=== PATIENT | female | born 1965 | race African-American/Black ===

== ENCOUNTER 2018-09-25 11:57 | Inpatient (IN) | payer OTHER ==
--- NOTE | 2018-09-25 15:02 | PDOC ---
History of Present Illness - General Chief Complaint: Psychiatric Stated Complaint: HIGH BLOOD SUGAR Time Seen by Provider: 09/25/18 14:52 History Source: Patient Exam Limitations: Other (poor historian) Past History - Travel Traveled outside of the country in the last 30 days: No Close contact w/someone who was outside of country & ill: No - Past Medical History Allergies/Adverse Reactions: Allergies Allergy/AdvReac Type Severity Reaction Status Date / Time No Known Drug Allergies Allergy Verified 09/25/18 12:01 Home Medications: Ambulatory Orders Atorvastatin Ca [Lipitor] 10 mg PO HS 09/25/18 Cetirizine HCl 10 mg PO DAILY 09/25/18 Divalproex *ER* [Depakote *ER* -] 500 mg PO DAILY 09/25/18 Glipizide 5 mg PO DAILY 09/25/18 Haloperidol 20 mg PO DAILY 09/25/18 Insulin Glargine,Hum.rec.anlog [Basaglar Kwikpen U-100] 22 unit SQ HS 09/25/18 Metformin HCl [Glucophage] 500 mg PO BID 09/25/18 - Suicide/Smoking/Psychosocial Hx Smoking History: Current every day smoker Information on smoking cessation initiated: No Review of Systems - Review of Systems Able to Perform ROS?: Yes (limited, poor historian) *Physical Exam - Vital Signs Last Vital Signs Temp Pulse Resp BP Pulse Ox 98.8 F 121 H 18 121/66 97 09/25/18 12:02 09/25/18 12:02 09/25/18 12:02 09/25/18 12:02 09/25/18 12:02 ED Treatment Course - LABORATORY CBC & Chemistry Diagram: 09/25/18 17:30 09/25/18 17:30 Medical Decision Making - Medical Decision Making Pt was seen at bedside, also will be seen by attending Dr. Barrios. Pt presenting from PCP office (Dr. Clay) for BGM of 535. Pt states she has not taken for metformin or other insulin for over 2 weeks due to "personal matters in court". The pt states she had 1 episode of NBNB vomiting yesterday, but denies any complaints today. Pt is very tangential in her speech, has been attempting to leave the ED to smoke cigarettes, but has very poor insight into her condition. Will provide IM haldol for agitation. Considering [vs vs] Ordered work-up including CBC, CMP, acetone, chest x-ray, UA. Provided 1 L IV NS and 2.5 IM haldol for improvement of agitation and dehydration. Will continue to reassess pt and monitor for symptomatic improvement. 09/25/18 15:16 Placed IV line for medication, unable to obtain bloodwork due to dehydration. Will give IVF and attempt bloodwork again. 09/25/18 16:15 UA showed 3+ glucose, no ketones BGM 311 after IVF Will provide additional IL IV NS Pt received 2L IV NS CBC WNL CMP: BUN/Cr WNL, glucose 297 Acetone negative Paging hospitalist team for admission. 09/25/18 18:35 Pt admitted to hospitalist team (Dr. Garcia). 09/25/18 19:13
[2018-09-25] MEDS ORDERED: SODIUM CHLORIDE 1,000 ML IV STA ×3 (15:41→19:21)
[2018-09-25] MEDS ORDERED: HALOPERIDOL LACTATE 5 MG/ML IM ONE ×2 (15:44→16:08)
--- NOTE | 2018-09-25 16:31 | PDOC ---
Documentation entered by Sy Hernandez SCRIBE, acting as scribe for Nik Barrios MD. Nik Barrios MD: This documentation has been prepared by the Mary araiza Xhesika, SCRIBE, under my direction and personally reviewed by me in its entirety. I confirm that the documentation accurately reflects all work, treatment, procedures, and medical decision making performed by me. Attending Attestation - Resident Resident Name: TianClara - ED Attending Attestation I have performed the following: I have examined & evaluated the patient, The case was reviewed & discussed with the resident, I agree w/resident's findings & plan, Exceptions are as noted - HPI HPI: 09/25/18 16:15 53 F with h/o DM, schizophrenia presenting to ED for elevated sugars. Pt does not check her fingerstick daily. Pt states she is supposed to be taking metformin, but she admits to non-compliance with all her meds for several weeks , including her haldol. Pt endorses an episode of nausea and vomiting yesterday but states that she feels at her baseline today. Pt went to her PMD today, where she was found to have a fingerstick >500. Pt was subsequently sent to the ED. Pt denies recent illness, no F/C. Pt denies SI/HI/AVH. - Physicial Exam PE: 09/25/18 16:17 "GENERAL: Awake, alert, and fully oriented, in no acute distress. HEAD: No signs of trauma EYES: PERRLA, EOMI, sclera anicteric, conjunctiva clear ENT: Auricles normal inspection, hearing grossly normal, nares patent, oropharynx clear without exudates. Moist mucosa NECK: Nontender, no stepoffs, Normal ROM, supple, no lymphadenopathy, JVD, or masses LUNGS: Breath sounds equal, clear to auscultation bilaterally. No wheezes, and no crackles HEART: Regular rate and rhythm, normal S1 and S2, no murmurs, rubs or gallops ABDOMEN: Soft, nontender, normoactive bowel sounds. No guarding, no rebound. No masses EXTREMITIES: Normal range of motion, no edema. No clubbing or cyanosis. No cords, erythema, or tenderness NEUROLOGICAL: Cranial nerves II through XII intact. 5/5 strength and sensation in all extremities, Normal speech, normal gait, normal cerebellar function SKIN: Warm, Dry, normal turgor, no rashes or lesions noted. - Medical Decision Making 09/25/18 16:18 53 F with elevated fingerstick, likely 2/2 med noncompliance. Will r/o DKA. Pt also noncompliant with her haldol. In ED, she is very tangential and displaying flight of ideas but is redirectable, not overtly psychotic. Denying SI/HI/AVH. Will give 1 dose haldol IM. - Labs, acetone - IVF 09/25/18 16:43 Upon further questioning, pt now stating that she is on insulin but is unable to give reliable history of how much she takes and when. Labs unremarkable other than hyperglycemia Given pt's h/o poor compliance and follow up, will admit for titration of medications
[2018-09-25 17:15] LABS: URINE APPEARANCE CLEAR; URINE BILIRUBIN NEGATIVE (NEGATIVE); URINE COLOR YELLOW; URINE GLUCOSE (UA) 3+ (NEGATIVE); URINE KETONE NEGATIVE (NEGATIVE); URINE LEUK ESTERASE NEGATIVE (NEGATIVE); URINE NITRITE NEGATIVE (NEGATIVE); URINE PROTEIN NEGATIVE (NEGATIVE); URINE UROBILINOGEN 0.2 mg/dL (0.2-1.0)
[2018-09-25 17:42] LABS: BASO % 1.4 % (0-2.0); EOS % 0.4 % (0-4.5); HEMATOCRIT 39.8 % (32.4-45.2); HEMOGLOBIN 13.6 GM/dL (10.7-15.3); MCH 30.8 pg (25.7-33.7); MCHC 34.2 g/dl (32.0-36.0); MEAN PLT VOLUME 8.7 fl (7.5-11.1); MONO % 6.9 % (3.8-10.2); NEUT % 49.3 % (42.8-82.8); PLATELET COUNT 217 K/MM3 (134-434); RBC 4.42 M/mm3 (3.60-5.2); RDW 12.7 % (11.6-15.6)
[2018-09-25 18:10] LABS: ACETONE SERUM NEGATIVE (NEGATIVE); ALK PHOS 132 U/L (45-117); ANION GAP 6 MMOL/L (8-16); BILIRUBIN,TOTAL 0.4 mg/dL (0.2-1); BLOOD UREA NITROGEN 11 mg/dL (7-18); CALCIUM 8.2 mg/dL (8.5-10.1); CHLORIDE 107 mmol/L (98-107); CO2 24 mmol/L (21-32); CREATININE 0.8 mg/dL (0.55-1.3); GLUCOSE,RANDOM 297 mg/dL (74-106); POTASSIUM 4.2 mmol/L (3.5-5.1); SGOT/AST 10 U/L (15-37); SGPT/ALT 18 U/L (13-61); SODIUM 137 mmol/L (136-145); TOT PROT 5.9 g/dl (6.4-8.2)
[2018-09-25] MEDS ORDERED: INSULIN REGULAR HUMAN 100 UNITS/ML *VIAL SQ ONE (18:32)
--- NOTE | 2018-09-25 18:48 | HP ---
CHIEF COMPLAINT: elevated sugar /schizophrenia PCP:Dr Clay HISTORY OF PRESENT ILLNESS:pt refuse to provide history , information was taking from medical records and ED note 53 F with h/o DM, schizophrenia presenting to ED for elevated sugars. Pt does not check her fingerstick daily. Pt states she is supposed to be taking metformin, but she admits to non-compliance with all her meds for several weeks , including her haldol. Pt endorses an episode of nausea and vomiting yesterday but states that she feels at her baseline today. Pt went to her PMD today, where she was found to have a fingerstick >500. Pt was subsequently sent to the ED. Pt denies recent illness, no F/C. Pt denies SI/HI/AVH. denies hearing voices , homicidal or suicidal ideation ER course was notable for: (1)cbc, cmp (2)IV fluids (3)Haldol 2.5 IM once Recent Travel: denies AST MEDICAL HISTORY: IDDM , Schizophrenia , seasonal allergies , chronic vaginitis , nuclear age related cataract PAST SURGICAL HISTORY: un known Social History: Smokin/2 PPD since age of 16 Alcohol:denies Drugs: denies Family History:un known Allergies No Known Drug Allergies Allergy (Verified 09/25/18 12:01) HOME MEDICATIONS: Home Medications Medication Instructions Recorded Atorvastatin Ca [Lipitor] 10 mg PO HS 09/25/18 Cetirizine HCl 10 mg PO DAILY 09/25/18 Divalproex *ER* [Depakote *ER* -] 500 mg PO DAILY 09/25/18 Glipizide 5 mg PO DAILY 09/25/18 Haloperidol 20 mg PO DAILY 09/25/18 Insulin Glargine,Hum.rec.anlog 22 unit SQ HS 09/25/18 [Basaglar Kwikpen U-100] Metformin HCl [Glucophage] 500 mg PO BID 09/25/18 REVIEW OF SYSTEMS un able to obtain PHYSICAL EXAMINATION Vital Signs - 24 hr 09/25/18 12:02 Temperature 98.8 F Pulse Rate 121 H Respiratory 18 Rate Blood Pressure 121/66 O2 Sat by Pulse 97 Oximetry (%) GENERAL: AAOx3 in NAD , sleeping in bed HEAD: NC/AT EYES: , Conjunctiva clear,red eyes B/L ENT: moist mucous membrane NECK: Supple, no JVD LUNGS: CTA B/L, no crackles no wheezing no accessory muscle use. HEART: RRR, NSR, normal s1, s2, murmur no M/R/G ABDOMEN: Soft, ND, NT, +BS 4 Q, no CVA Tenderness LOWER EXTREMITIES: no edema, +2DP pulse, NEUROLOGICAL: No focal deficit. Normal speech. gait not observed. PSYCHIATRIC:sleeping and no eye contact , refuse to provide history SKIN: Warm, dry, Laboratory Results - last 24 hr 09/25/18 09/25/18 09/25/18 16:48 17:14 17:30 WBC RBC Hgb Hct MCV MCH MCHC RDW Plt Count MPV Absolute Neuts (auto) Neutrophils % Lymphocytes % Monocytes % Eosinophils % Basophils % Nucleated RBC % Sodium 137 Potassium 4.2 Chloride 107 Carbon Dioxide 24 Anion Gap 6 L BUN 11 Creatinine 0.8 Est GFR (CKD-EPI)AfAm 98.24 Est GFR (CKD-EPI)NonAf 84.76 POC Glucometer 311 Random Glucose 297 H Calcium 8.2 L Total Bilirubin 0.4 AST 10 L ALT 18 Alkaline Phosphatase 132 H Total Protein 5.9 L Albumin 3.0 L Urine Color Yellow Urine Appearance Clear Urine pH 5.0 Ur Specific [place] 1.034 Urine Protein Negative Urine Glucose (UA) 3+ H Urine Ketones Negative Urine Blood Negative Urine Nitrite Negative Urine Bilirubin Negative Urine Urobilinogen 0.2 Ur Leukocyte Esterase Negative Acetone, Qual Negative L 09/25/18 17:30 WBC 10.0 RBC 4.42 Hgb 13.6 Hct 39.8 MCV 90.0 MCH 30.8 MCHC 34.2 RDW 12.7 Plt Count 217 MPV 8.7 Absolute Neuts (auto) 4.9 Neutrophils % 49.3 Lymphocytes % 42.0 H Monocytes % 6.9 Eosinophils % 0.4 Basophils % 1.4 Nucleated RBC % 0 Sodium Potassium Chloride Carbon Dioxide Anion Gap BUN Creatinine Est GFR (CKD-EPI)AfAm Est GFR (CKD-EPI)NonAf POC Glucometer Random Glucose Calcium Total Bilirubin AST ALT Alkaline Phosphatase Total Protein Albumin Urine Color Urine Appearance Urine pH Ur Specific [place] Urine Protein Urine Glucose (UA) Urine Ketones Urine Blood Urine Nitrite Urine Bilirubin Urine Urobilinogen Ur Leukocyte Esterase Acetone, Qual CBC, BMP 09/25/18 17:30 09/25/18 17:30 ASSESSMENT/PLAN: 53 year old female with IDDM , Schizophrenia ,seasonal allergies , was send yo ED by her PCP Dr Danna pascual to levated blood sugar 535 was admitted to M/S due to pscychiatrist component . # Hyperglycemia due to non compliance , no DKA component * BGM 535 on admission improved to 300 with IV fluids 2 L NS and 6 units IV regular insulin * hold oral agents Glipizide and Metformin * BGM ACHS * Cont long acting insulin 22 units HS (verified by ed resident from PCP ) * start ISS * Diabetic diet * monitor for hypoglycemia over night as pt might not eat her dinner * CXR no acute pathology , UA +3 glucose and no acetone # psych Schizophrenia/ psychosis * no insight , not complaint with her meds * psych consult Dr Bush * social work consult for [facility] # FEN * NS @ 100 CC/hr ,recieved 2 L Bolus NS in ED * Monitor lytes * Diabetic diet # Proph * DVTS: SCds , lovenox 40 SQ daily # Dispo * inpatient M/S # code status : Full code Visit type - Emergency Visit Emergency Visit: Yes ED Registration Date: 09/25/18 Care time: The patient presented to the Emergency Department on the above date and was hospitalized for further evaluation of their emergent condition. - New Patient This patient is new to me today: Yes Date on this admission: 09/25/18 - Critical Care Critical Care patient: No
[2018-09-25] MEDS ORDERED: INSULIN REGULAR HUMAN 100 UNITS/ML *VIAL ONE (18:49)
--- NOTE | 2018-09-25 19:15 | PN ---
Teaching Attending Note Name of Resident: Bradly Petersen ATTENDING PHYSICIAN STATEMENT I saw and evaluated the patient. I reviewed the resident's note and discussed the case with the resident. I agree with the resident's findings and plan as documented. SUBJECTIVE: Patient is a 53 year old woman with PMH of insulin-treated DM, Tobacco use, Nonadherence and Schizophrenia sent to the ER by her PCP for hyperglycemia. Patient does not check her fingerstick daily. She is supposed to be taking metformin, but she admits to non-compliance with all her medication for several weeks, including her Haldol. She had an episode of nausea and vomiting yesterday but states that she feels at her baseline today. Went to her PCP today , where she was found to have a fingerstick >500. She denies recent illness, fever, chills, headache, abdominal pain, chest pain, diarrhea, suicidal or homicidal ideation. OBJECTIVE: Somnolent and in no mood to talk Vital Signs Period Temp Pulse Resp BP Sys/Allen Pulse Ox Last 24 Hr 98.8 F 121 18 121/66 97 HEENT: No Jaundice, eye redness or discharge, PERRLA, EOMI. Normocephalic, atraumatic. External ears are normal and hearing is grossly intact. No nasal discharge. Neck: Supple, nontender. No palpable adenopathy or thyromegaly. No JVD Chest: Good effort. Clear to auscultation and percussion. Heart: Regular. No S3, rub or murmur Abdomen: Not distended, soft, nontender and no HSM. No rebound or guarding. Normal bowel sounds. Ext: Peripheral pulses intact. No leg edema. Skin: Warm and dry. No petechiae, rash or ecchymosis. Neuro: Alert. Oriented x3. CN 2-12 grossly intact. Sensation grossly intact in all four extremities and DTR are symmetric. Psych: Appropriate mood and affect. Poor insight. Current Medications Generic Name Dose Route Start Last Admin Trade Name Freq PRN Reason Stop Dose Admin Enoxaparin Sodium 40 mg 09/26/18 10:00 Lovenox - SQ DAILY CAESAR Sodium Chloride 1,000 mls @ 1,000 mls/hr 09/25/18 19:21 Normal Saline - IV 09/25/18 20:20 ASDIR STA Sodium Chloride 1,000 mls @ 100 mls/hr 09/25/18 19:30 Normal Saline - IV ASDIR [facility] Insulin Aspart 1 vial 09/25/18 22:00 Novolog Vial Sliding Scale - SQ ACHS [facility] Protocol Insulin Detemir 22 units 09/25/18 22:00 Levemir Vial SQ HS [facility] Home Medications Medication Instructions Recorded Atorvastatin Ca [Lipitor] 10 mg PO HS 09/25/18 Cetirizine HCl 10 mg PO DAILY 09/25/18 Divalproex *ER* [Depakote *ER* -] 500 mg PO DAILY 09/25/18 Glipizide 5 mg PO DAILY 09/25/18 Haloperidol 20 mg PO DAILY 09/25/18 Insulin Glargine,Hum.rec.anlog 22 unit SQ HS 09/25/18 [Basaglar Kwikpen U-100] Metformin HCl [Glucophage] 500 mg PO BID 09/25/18 Abnormal Lab Results 09/25/18 09/25/18 09/25/18 16:48 17:30 17:30 Lymphocytes % 42.0 H Anion Gap 6 L Random Glucose 297 H Calcium 8.2 L AST 10 L Alkaline Phosphatase 132 H Total Protein 5.9 L Albumin 3.0 L Urine Glucose (UA) 3+ H Acetone, Qual Negative L ASSESSMENT AND PLAN: 1. Uncontrolled Diabetes Mellitus - Likely primarily due to nonadherence with her diabetes regimen. EKG shows NSR with no acute ST-T wave changes and there is no abnormality on CXR. Got IV insulin in the ER and blood sugar is improving. Will continue IV NS and monitor BMP. No evidence of DKA. Needs intense patient education, psychiatry consult and referral to [facility] upon discharge. Will hold the home diabetes drugs and implement sliding scale insulin regimen. Provide comprehensive diabetes care with patient teaching and counseling about the importance of adherence to prescribed diabetes regimen, euglycemia, eye care and foot care. 2. Hypoalbuminemia - Possibly due to combined effects of malnutrition and inflammation associated with comorbid chronic conditions. Will ensure adequate dietary protein intake and also consult customer success director. 3. Tobacco Use Counseled on risks associated with tobacco use. We will provide patient all the necessary assistance to facilitate smoking cessation and prescribe Nicotine patch. 4. Overweight Counseled on the risks associated with being overweight. Will provide patient all the necessary assistance, counseling and positive reinforcement to facilitate weight loss. Consult customer success director. 5. DVT prophylaxis - Lovenox 40 mg SQ q 24 hours. 6. Advance directives - Full code
[2018-09-25] MEDS ORDERED: SODIUM CHLORIDE 1,000 ML IV SCH (19:30)
[2018-09-25] MEDS: INSULIN SLIDING SCALE (NOVOLOG) 1 VIAL SQ SCH (21:20)
[2018-09-25] MEDS ORDERED: ATORVASTATIN CA 10 MG TABLET (FP) PO SCH (22:00)
[2018-09-25] MEDS ORDERED: INSULIN (LEVEMIR) 100 UNITS/ML UNITS SQ SCH ×2 (22:00)
[2018-09-25 22:46] VITALS: BMI 32.6
[2018-09-26] MEDS: INSULIN SLIDING SCALE (NOVOLOG) 1 VIAL SQ SCH ×2 (06:00→11:51)
[2018-09-26 07:24] LABS: BASO % 0.9 % (0-2.0); EOS % 0.8 % (0-4.5); HEMATOCRIT 38.7 % (32.4-45.2); HEMOGLOBIN 13.3 GM/dL (10.7-15.3); LYMPH % 36.4 % (8-40); MCH 30.9 pg (25.7-33.7); MCHC 34.4 g/dl (32.0-36.0); MEAN CELL VOLUME 89.8 fl (80-96); MEAN PLT VOLUME 8.6 fl (7.5-11.1); MONO % 7.1 % (3.8-10.2); NEUT % 54.8 % (42.8-82.8); PLATELET COUNT 219 K/MM3 (134-434); RBC 4.31 M/mm3 (3.60-5.2); RDW 12.6 % (11.6-15.6); WHITE BLOOD COUNT 8.4 K/mm3 (4.0-10.0)
[2018-09-26 08:18] LABS: ALBUMIN 2.8 g/dl (3.4-5.0); BILIRUBIN,TOTAL 0.7 mg/dL (0.2-1); CALCIUM 8.1 mg/dL (8.5-10.1); CREATININE 0.8 mg/dL (0.55-1.3); MAGNESIUM 1.9 mg/dL (1.8-2.4); PHOSPHOROUS 3.5 mg/dL (2.5-4.9); POTASSIUM 4.4 mmol/L (3.5-5.1); TOT PROT 5.7 g/dl (6.4-8.2)
[2018-09-26] MEDS ORDERED: PNEUMOC 13-VAL CONJ-DIP CRM/PF 0.5 ML DISP.SYRIN IM ONE (09:00)
[2018-09-26] MEDS ORDERED: ENOXAPARIN NA (PORCINE) 40 MG/0.4 ML DISP.SYRIN SQ SCH (10:00)
[2018-09-26] MEDS ORDERED: DIVALPROEX NA *ER* EXTEND REL 500 MG TABLET.SA (FP) PO SCH (10:00)
[2018-09-26] MEDS ORDERED: HALOPERIDOL 20 MG PO SCH (10:00)
[2018-09-26] MEDS ORDERED: PT OWN MED DRAWER 7, Y5N ONE (11:39)
--- NOTE | 2018-09-26 12:09 | DS ---
Physical Exam: SUBJECTIVE: Patient seen and examined at bedside. No acute events overnight. OBJECTIVE: Vital Signs Period Temp Pulse Resp BP Sys/Allen Pulse Ox Last 24 Hr 98.2 F-98.6 F 77-99 18-18 115-117/62-72 96-96 PHYSICAL EXAM GENERAL: AAOx3 in NAD , sleeping in bed HEAD: NC/AT EYES: , Conjunctiva clear,red eyes B/L ENT: moist mucous membrane NECK: Supple, no JVD LUNGS: CTA B/L, no crackles no wheezing no accessory muscle use. HEART: RRR, NSR, normal s1, s2, murmur no M/R/G ABDOMEN: Soft, ND, NT, +BS 4 Q, no CVA Tenderness LOWER EXTREMITIES: no edema, +2DP pulse, NEUROLOGICAL: No focal deficit. Normal speech. gait not observed. PSYCHIATRIC:sleeping and no eye contact , refuse to provide history LABS Laboratory Results - last 24 hr 09/25/18 09/25/18 09/25/18 16:48 17:14 17:30 WBC RBC Hgb Hct MCV MCH MCHC RDW Plt Count MPV Absolute Neuts (auto) Neutrophils % Lymphocytes % Monocytes % Eosinophils % Basophils % Nucleated RBC % Sodium 137 Potassium 4.2 Chloride 107 Carbon Dioxide 24 Anion Gap 6 L BUN 11 Creatinine 0.8 Est GFR (CKD-EPI)AfAm 98.24 Est GFR (CKD-EPI)NonAf 84.76 POC Glucometer 311 Random Glucose 297 H Hemoglobin A1c % Calcium 8.2 L Phosphorus Magnesium Total Bilirubin 0.4 AST 10 L ALT 18 Alkaline Phosphatase 132 H Total Protein 5.9 L Albumin 3.0 L TSH Urine Color Yellow Urine Appearance Clear Urine pH 5.0 Ur Specific [place] 1.034 Urine Protein Negative Urine Glucose (UA) 3+ H Urine Ketones Negative Urine Blood Negative Urine Nitrite Negative Urine Bilirubin Negative Urine Urobilinogen 0.2 Ur Leukocyte Esterase Negative Acetone, Qual Negative L 09/25/18 09/25/18 09/25/18 17:30 21:00 21:17 WBC 10.0 RBC 4.42 Hgb 13.6 Hct 39.8 MCV 90.0 MCH 30.8 MCHC 34.2 RDW 12.7 Plt Count 217 MPV 8.7 Absolute Neuts (auto) 4.9 Neutrophils % 49.3 Lymphocytes % 42.0 H Monocytes % 6.9 Eosinophils % 0.4 Basophils % 1.4 Nucleated RBC % 0 Sodium Potassium Chloride Carbon Dioxide Anion Gap BUN Creatinine Est GFR (CKD-EPI)AfAm Est GFR (CKD-EPI)NonAf POC Glucometer 304 Random Glucose Hemoglobin A1c % 14.1 H Calcium Phosphorus Magnesium Total Bilirubin AST ALT Alkaline Phosphatase Total Protein Albumin TSH Urine Color Urine Appearance Urine pH Ur Specific [place] Urine Protein Urine Glucose (UA) Urine Ketones Urine Blood Urine Nitrite Urine Bilirubin Urine Urobilinogen Ur Leukocyte Esterase Acetone, Qual 09/26/18 09/26/18 09/26/18 05:53 06:44 06:46 WBC 8.4 RBC 4.31 Hgb 13.3 Hct 38.7 MCV 89.8 MCH 30.9 MCHC 34.4 RDW 12.6 Plt Count 219 MPV 8.6 Absolute Neuts (auto) 4.6 Neutrophils % 54.8 Lymphocytes % 36.4 Monocytes % 7.1 Eosinophils % 0.8 D Basophils % 0.9 Nucleated RBC % 0 Sodium 138 Potassium 4.4 Chloride 109 H Carbon Dioxide 22 Anion Gap 7 L BUN 14 Creatinine 0.8 Est GFR (CKD-EPI)AfAm 98.24 Est GFR (CKD-EPI)NonAf 84.76 POC Glucometer 263 Random Glucose 246 H Hemoglobin A1c % Calcium 8.1 L Phosphorus 3.5 Magnesium 1.9 Total Bilirubin 0.7 AST 16 ALT 17 Alkaline Phosphatase 117 Total Protein 5.7 L Albumin 2.8 L TSH 1.45 Urine Color Urine Appearance Urine pH Ur Specific [place] Urine Protein Urine Glucose (UA) Urine Ketones Urine Blood Urine Nitrite Urine Bilirubin Urine Urobilinogen Ur Leukocyte Esterase Acetone, Qual 09/26/18 11:49 WBC RBC Hgb Hct MCV MCH MCHC RDW Plt Count MPV Absolute Neuts (auto) Neutrophils % Lymphocytes % Monocytes % Eosinophils % Basophils % Nucleated RBC % Sodium Potassium Chloride Carbon Dioxide Anion Gap BUN Creatinine Est GFR (CKD-EPI)AfAm Est GFR (CKD-EPI)NonAf POC Glucometer 276 Random Glucose Hemoglobin A1c % Calcium Phosphorus Magnesium Total Bilirubin AST ALT Alkaline Phosphatase Total Protein Albumin TSH Urine Color Urine Appearance Urine pH Ur Specific [place] Urine Protein Urine Glucose (UA) Urine Ketones Urine Blood Urine Nitrite Urine Bilirubin Urine Urobilinogen Ur Leukocyte Esterase Acetone, Qual HOSPITAL COURSE: Date of Admission:09/25/18 53F with pmhx of IDDM, Schizophrenia, seasonal allergies was sent to the ED by her PCP, Dr. Clay due to elevated blood sugar of 535. Blood work showed Glu 297. She was given 2L NS and IV regular insulin. Additionally, pt was found to be tangential and uncooperative and given Haldol in the ED. She was monitored overnight with no symptomatic complaints. She was discharged home and strongly advised to abide by her medication regimen with recommendation to follow up with her primary care physician. She was also recommended to follow up with the lining strap closer for strict diabetic management as well as her psychiatrist as an outpatient. Date of Discharge: 09/26/18 Minutes to complete discharge: 35 Discharge Summary Reason For Visit: HYPERGLYCEMIA SCHIZOPHRENIA Current Active Problems Insulin dependent diabetes mellitus (Chronic) Condition: Improved - Instructions Diet, Activity, Other Instructions: You were sent to the hospital from your primary care doctor for elevated blood sugar levels. Blood work was done that showed blood sugar of >300. Throughout your hospital stay, you were given insulin to lower your blood sugar levels. You were monitored overnight and your symptoms improved. You are being discharged home. MEDICATIONS Please continue taking your medications as prescribed. It is very important that you take your insulin to avoid extremely high blood sugar levels. FOLLOW UP Please follow up with your primary care physician, Dr. Bar within 1 week. Please also follow up with an lining strap closer/ diabetes doctor, Dr. Quiroga in a week. Your a1c is very high. It is 14.1. This means that you may need more help adjusting your diabetes medications. If you experience persistent headache, abdominal pain, chest pain, shortness of breath or other associated symptoms, please proceed to your nearest emergency room immediately. Referrals: Sariah Polk MD [Staff Physician] - 1 Week Cheyenne Busby MD [Staff Physician] - 1 Week Disposition: HOME - Home Medications Comprehensive Discharge Medication List: Ambulatory Orders Atorvastatin Ca [Lipitor] 10 mg PO HS 09/25/18 Cetirizine HCl 10 mg PO DAILY 09/25/18 Divalproex *ER* [Depakote *ER* -] 500 mg PO DAILY 09/25/18 Glipizide 5 mg PO DAILY 09/25/18 Haloperidol 20 mg PO DAILY 09/25/18 Insulin Glargine,Hum.rec.anlog [Basaglar Kwikpen U-100] 22 unit SQ HS 09/25/18 Metformin HCl [Glucophage] 500 mg PO BID 09/25/18 This patient is new to me today: Yes Date on this admission: 09/27/18 Emergency Visit: Yes ED Registration Date: 09/25/18 Care time: The patient presented to the Emergency Department on the above date and was hospitalized for further evaluation of their emergent condition. Critical Care patient: No - Discharge Referral Referred to [facility] Med P.C.: No
--- NOTE | 2018-09-26 12:26 | EKG ---
Test Reason : Blood Pressure : / mmHG Vent. Rate : 079 BPM Atrial Rate : 079 BPM P-R Int : 140 ms QRS Dur : 070 ms QT Int : 380 ms P-R-T Axes : 064 013 028 degrees QTc Int : 435 ms NORMAL SINUS RHYTHM NORMAL ECG WHEN COMPARED WITH ECG OF 25-SEP-2018 19:36, NO SIGNIFICANT CHANGE WAS FOUND Confirmed by ARACELI BROWN MD ([id number]) on 09/26/2018 12:26:29 PM Referred By: THOMAS LYONS DR Confirmed By:ARACELI BROWN MD
--- NOTE | 2018-09-26 12:34 | EKG ---
Test Reason : Blood Pressure : / mmHG Vent. Rate : 093 BPM Atrial Rate : 093 BPM P-R Int : 150 ms QRS Dur : 068 ms QT Int : 372 ms P-R-T Axes : 069 009 027 degrees QTc Int : 462 ms NORMAL SINUS RHYTHM NORMAL ECG NO PREVIOUS ECGS AVAILABLE Confirmed by ARACELI BROWN MD ([id number]) on 09/26/2018 12:33:54 PM Referred By: Confirmed By:ARACELI BROWN MD
[2018-09-26 12:40] VITALS: BP 137/99; PULSE 86; TEMP 97.7
--- NOTE | 2018-09-26 16:30 | PN ---
Teaching Attending Note Name of Resident: Liz Gonzalez ATTENDING PHYSICIAN STATEMENT I saw and evaluated the patient. I reviewed the resident's note and discussed the case with the resident. I agree with the resident's findings and plan as documented. SUBJECTIVE: Feels well - no complaints. Wants to go home. OBJECTIVE: Afebrile, Hemodynamically Stable Last Vital Signs Temp Pulse Resp BP Pulse Ox 97.7 F 86 18 137/99 96 09/26/18 08:30 09/26/18 08:30 09/26/18 08:30 09/26/18 08:30 09/25/18 21:00 HEENT - Atraumatic, Normocephalic Heart - S1, S2, RRR Lungs - clear to auscultation Abdomen - Soft, non-tender. Bowel Sounds normal. Extremities- no edema, no calf tenderness. Laboratory Results - last 24 hr 09/25/18 09/25/18 09/25/18 16:48 17:14 17:30 WBC RBC Hgb Hct MCV MCH MCHC RDW Plt Count MPV Absolute Neuts (auto) Neutrophils % Lymphocytes % Monocytes % Eosinophils % Basophils % Nucleated RBC % Sodium 137 Potassium 4.2 Chloride 107 Carbon Dioxide 24 Anion Gap 6 L BUN 11 Creatinine 0.8 Est GFR (CKD-EPI)AfAm 98.24 Est GFR (CKD-EPI)NonAf 84.76 POC Glucometer 311 Random Glucose 297 H Hemoglobin A1c % Calcium 8.2 L Phosphorus Magnesium Total Bilirubin 0.4 AST 10 L ALT 18 Alkaline Phosphatase 132 H Total Protein 5.9 L Albumin 3.0 L TSH Urine Color Yellow Urine Appearance Clear Urine pH 5.0 Ur Specific [place] 1.034 Urine Protein Negative Urine Glucose (UA) 3+ H Urine Ketones Negative Urine Blood Negative Urine Nitrite Negative Urine Bilirubin Negative Urine Urobilinogen 0.2 Ur Leukocyte Esterase Negative Acetone, Qual Negative L 09/25/18 09/25/18 09/25/18 17:30 21:00 21:17 WBC 10.0 RBC 4.42 Hgb 13.6 Hct 39.8 MCV 90.0 MCH 30.8 MCHC 34.2 RDW 12.7 Plt Count 217 MPV 8.7 Absolute Neuts (auto) 4.9 Neutrophils % 49.3 Lymphocytes % 42.0 H Monocytes % 6.9 Eosinophils % 0.4 Basophils % 1.4 Nucleated RBC % 0 Sodium Potassium Chloride Carbon Dioxide Anion Gap BUN Creatinine Est GFR (CKD-EPI)AfAm Est GFR (CKD-EPI)NonAf POC Glucometer 304 Random Glucose Hemoglobin A1c % 14.1 H Calcium Phosphorus Magnesium Total Bilirubin AST ALT Alkaline Phosphatase Total Protein Albumin TSH Urine Color Urine Appearance Urine pH Ur Specific [place] Urine Protein Urine Glucose (UA) Urine Ketones Urine Blood Urine Nitrite Urine Bilirubin Urine Urobilinogen Ur Leukocyte Esterase Acetone, Qual 09/26/18 09/26/18 09/26/18 05:53 06:44 06:46 WBC 8.4 RBC 4.31 Hgb 13.3 Hct 38.7 MCV 89.8 MCH 30.9 MCHC 34.4 RDW 12.6 Plt Count 219 MPV 8.6 Absolute Neuts (auto) 4.6 Neutrophils % 54.8 Lymphocytes % 36.4 Monocytes % 7.1 Eosinophils % 0.8 D Basophils % 0.9 Nucleated RBC % 0 Sodium 138 Potassium 4.4 Chloride 109 H Carbon Dioxide 22 Anion Gap 7 L BUN 14 Creatinine 0.8 Est GFR (CKD-EPI)AfAm 98.24 Est GFR (CKD-EPI)NonAf 84.76 POC Glucometer 263 Random Glucose 246 H Hemoglobin A1c % Calcium 8.1 L Phosphorus 3.5 Magnesium 1.9 Total Bilirubin 0.7 AST 16 ALT 17 Alkaline Phosphatase 117 Total Protein 5.7 L Albumin 2.8 L TSH 1.45 Urine Color Urine Appearance Urine pH Ur Specific [place] Urine Protein Urine Glucose (UA) Urine Ketones Urine Blood Urine Nitrite Urine Bilirubin Urine Urobilinogen Ur Leukocyte Esterase Acetone, Qual 09/26/18 11:49 WBC RBC Hgb Hct MCV MCH MCHC RDW Plt Count MPV Absolute Neuts (auto) Neutrophils % Lymphocytes % Monocytes % Eosinophils % Basophils % Nucleated RBC % Sodium Potassium Chloride Carbon Dioxide Anion Gap BUN Creatinine Est GFR (CKD-EPI)AfAm Est GFR (CKD-EPI)NonAf POC Glucometer 276 Random Glucose Hemoglobin A1c % Calcium Phosphorus Magnesium Total Bilirubin AST ALT Alkaline Phosphatase Total Protein Albumin TSH Urine Color Urine Appearance Urine pH Ur Specific [place] Urine Protein Urine Glucose (UA) Urine Ketones Urine Blood Urine Nitrite Urine Bilirubin Urine Urobilinogen Ur Leukocyte Esterase Acetone, Qual Discharge Medications Medication Instructions Recorded Atorvastatin Ca [Lipitor] 10 mg PO HS 09/25/18 Cetirizine HCl 10 mg PO DAILY 09/25/18 Divalproex *ER* [Depakote *ER* -] 500 mg PO DAILY 09/25/18 Glipizide 5 mg PO DAILY 09/25/18 Haloperidol 20 mg PO DAILY 09/25/18 Insulin Glargine,Hum.rec.anlog 22 unit SQ HS 09/25/18 [Tami Chavez U-100] Metformin HCl [Glucophage] 500 mg PO BID 09/25/18 ASSESSMENT AND PLAN: 53 year old female with DM 2, Schizophrenia, HLD, seasonal allergies, sent to ED by PCP with Hyperglycemia, serum glucose of 535. 1. Hyperglycemia secondary to medication non-compliance. No DKA Resumed on home medications - Metformin, Glipizide, Glargine FS improving A1c 14.1 - uncontrolled. Patient counselled. Follow up with PCP and Endocrinology Dr. Tomas 2. Schizophrenia - no active psychosis, delusions, hallucinations, suicidal/ homicidal ideation Continue Haloperidol and Depakote For out-patient Psych follow up. 3. HLD - Continue Statin Medically stable for discharge. Verbalized understanding when counselled regarding compliance with home medications.
--- NOTE | 2018-09-30 12:49 | EKG ---
Test Reason : Blood Pressure : / mmHG Vent. Rate : 095 BPM Atrial Rate : 095 BPM P-R Int : 140 ms QRS Dur : 078 ms QT Int : 366 ms P-R-T Axes : 054 003 031 degrees QTc Int : 459 ms NORMAL SINUS RHYTHM NORMAL ECG NO PREVIOUS ECGS AVAILABLE Confirmed by Augie Jon MD ([id number]) on 09/30/2018 12:49:17 PM Referred By: Confirmed By:Augie Jon MD
== END 2018-09-26 13:30 | disposition home or self-care (01) | DRG 420 ==
LOC: JER 11:57 → JERBED 18:25 → J8W 20:34
PROVIDERS: ADMIT Internal Medicine
DX: E11.65 Type 2 diabetes mellitus with hyperglycemia (principal); E88.09 Other disorders of plasma-protein metabolism, not elsewhere classified; F20.9 Schizophrenia, unspecified; Z79.4 Long term (current) use of insulin; Z79.84 Long term (current) use of oral hypoglycemic drugs; F17.210 Nicotine dependence, cigarettes, uncomplicated; Z91.14 Patient's other noncompliance with medication regimen; E66.9 Obesity, unspecified; Z68.32 Body mass index [BMI] 32.0-32.9, adult
CPT/HCPCS: 36415; 71046-TC-FY; 80053; 81003; 82009; 82962; 83036; 83735; 84100; 84443; 85025; 90670; 93005; 93010; 99285-25; J7030

== ENCOUNTER 2018-11-07 08:38 | Emergency (ER) | payer OTHER ==
[2018-11-07 08:48] VITALS: BP 122/84; PULSE 104; TEMP 98.2; BMI 29.0
--- NOTE | 2018-11-07 09:14 | PDOC ---
Attending Attestation - Resident Resident Name: Van Vega - ED Attending Attestation I have performed the following: I have examined & evaluated the patient, The case was reviewed & discussed with the resident, I agree w/resident's findings & plan, Exceptions are as noted - HPI HPI: 53 yo F with history of DM (poorly compliant with treatment), schizophrenia presenting after her PMD told her that her glucose was elevated. She states she has used insulin "twice" since she was discharged over a month ago for similar problem. Denies abd pain, N/V/D, f/c. dysuria. Arrives in ED drinking soda. - Physicial Exam PE: GENERAL: Awake, alert, and fully oriented, in no acute distress HEAD: No signs of trauma EYES: PERRLA, EOMI, sclera anicteric, conjunctiva clear ENT: Auricles normal inspection, hearing grossly normal, nares patent, oropharynx clear without exudates. Dry mucosa NECK: Normal ROM, supple, no lymphadenopathy, JVD, or masses LUNGS: Breath sounds equal, clear to auscultation bilaterally. No wheezes, and no crackles HEART: Regular rate and rhythm, normal S1 and S2, no murmurs, rubs or gallops ABDOMEN: Soft, nontender, normoactive bowel sounds. No guarding, no rebound. No masses EXTREMITIES: Normal range of motion, no edema. No clubbing or cyanosis. No cords, erythema, or tenderness NEUROLOGICAL: Cranial nerves II through XII grossly intact. Normal speech, normal gait. Motor and sensation intact SKIN: Warm, dry, normal turgor, no rashes or lesions noted. PSYCHIATRIC: No AH/VH, no SI/HI. Cooperative. Somewhat tangential thought process. - Medical Decision Making Pt presents with elevated glucose a few days after her PMD requested she go to the ED. Poorly compliant with insulin and diet. Immediately requesting a tray of food and using sugar on arrival. Will check glucose, r/o DKA.
--- NOTE | 2018-11-07 09:32 | PDOC ---
History of Present Illness - General Chief Complaint: Blood Sugar Problem Stated Complaint: HIGH BLOOD SUGAR Time Seen by Provider: 11/07/18 09:06 History Source: Patient Exam Limitations: No Limitations - History of Present Illness Initial Comments: 11/07/18 09:58 53 yo F with a hx of DM insulin dependent (10 units BID) and schizophrenia (not on medication; no active AH/VH) presents to the emergency department upon recommendation from her PMD for hyperglycemia. Per the patient, she states she last took her 11/07/18 12:19 Past History - Past Medical History Allergies/Adverse Reactions: Allergies Allergy/AdvReac Type Severity Reaction Status Date / Time No Known Drug Allergies Allergy Verified 11/07/18 08:43 Home Medications: Ambulatory Orders Atorvastatin Ca [Lipitor] 10 mg PO HS 09/25/18 Cetirizine HCl 10 mg PO DAILY 09/25/18 Divalproex *ER* [Depakote *ER* -] 500 mg PO DAILY 09/25/18 Glipizide 5 mg PO DAILY 09/25/18 Haloperidol 20 mg PO DAILY 09/25/18 Insulin Glargine,Hum.rec.anlog [Basaglar Kwikpen U-100] 22 unit SQ HS 09/25/18 Metformin HCl [Glucophage] 500 mg PO BID 09/25/18 COPD: No Diabetes: Yes HTN: Yes Psychiatric Problems: Yes Lung CA: Yes - Immunization History Immunization Up to Date: No - Suicide/Smoking/Psychosocial Hx Smoking History: Current every day smoker Have you smoked in the past 12 months: Yes Number of Cigarettes Smoked Daily: 10 Information on smoking cessation initiated: No Hx Alcohol Use: No Drug/Substance Use Hx: No *Physical Exam - Vital Signs Last Vital Signs Temp Pulse Resp BP Pulse Ox 98.2 F 104 H 18 122/84 100 11/07/18 08:44 11/07/18 08:44 11/07/18 08:44 11/07/18 08:44 11/07/18 08:44 ED Treatment Course - LABORATORY CBC & Chemistry Diagram: 11/07/18 10:20 11/07/18 11:53 - ADDITIONAL ORDERS Additional order review: Laboratory Results 11/07/18 09:27 POC Glucometer 512 11/07/18 09:27 POC Glucometer 512 *DC/Admit/Observation/Transfer Diagnosis at time of Disposition: Hyperglycemia - Discharge Dispostion Disposition: HOME Decision to Admit order: No - Referrals Referrals: Sariah Polk MD [Primary Care Provider] - - Patient Instructions Printed Discharge Instructions: DI for Hyperglycemia -- Adult Additional Instructions: You were seen in the emergency department for your high blood sugar. Your sugar was 435 when you initially presented and went down with insulin. Please see your primary medical doctor within 3 days after discharge for follow up care and management. Please return to the emergency department if you have confusion , rapid breathing, and uncontrollable nausea and vomiting. Thank you. - Post Discharge Activity
[2018-11-07] MEDS ORDERED: SODIUM CHLORIDE 0.9% 500 ML INFUS.BAG IV ONE (09:34)
[2018-11-07] MEDS ORDERED: INSULIN REGULAR HUMAN 100 UNITS/ML *VIAL SQ ONE (09:34)
[2018-11-07] MEDS ORDERED: INSULIN REGULAR HUMAN 100 UNITS/ML *VIAL ONE ×3 (09:55→12:10)
[2018-11-07 10:34] LABS: BASO % 1.6 % (0-2.0); EOS % 0.7 % (0-4.5); HEMATOCRIT 41.2 % (32.4-45.2); HEMOGLOBIN 14.4 GM/dL (10.7-15.3); LYMPH % 25.9 % (8-40); MCH 31.2 pg (25.7-33.7); MEAN CELL VOLUME 89.3 fl (80-96); MEAN PLT VOLUME 8.7 fl (7.5-11.1); NEUT % 64.8 % (42.8-82.8); PLATELET COUNT 240 K/MM3 (134-434); RBC 4.61 M/mm3 (3.60-5.2); RDW 12.8 % (11.6-15.6); WHITE BLOOD COUNT 8.6 K/mm3 (4.0-10.0)
[2018-11-07 10:35] LABS: VENOUS PC02 36.7 mmHg (41-51); VENOUS PH 7.37 (7.31-7.41); VENOUS PO2 54.9 mmHg (30-40)
[2018-11-07] MEDS ORDERED: NICOTINE 21 MG/24 HOURS TOPICAL PATCH TD SCH (10:45)
[2018-11-07] MEDS ORDERED: INSULIN REGULAR HUMAN 100 UNITS/ML *VIAL IVPUSH ONE (12:04)
[2018-11-07 12:37] LABS: ALK PHOS 146 U/L (45-117); ANION GAP 7 MMOL/L (8-16); BILIRUBIN,TOTAL 0.5 mg/dL (0.2-1); BLOOD UREA NITROGEN 13.3 mg/dL (7-18); CALCIUM 8.4 mg/dL (8.5-10.1); CHLORIDE 103 mmol/L (98-107); CO2 25 mmol/L (21-32); CREATININE 0.9 mg/dL (0.55-1.3); GLUCOSE,RANDOM 435 mg/dL (74-106); POTASSIUM 4.3 mmol/L (3.5-5.1); SGOT/AST 10 U/L (15-37); SGPT/ALT 18 U/L (13-61); SODIUM 136 mmol/L (136-145); TOT PROT 6.5 g/dl (6.4-8.2)
[2018-11-07 13:15] LABS: ACETONE SERUM NEGATIVE (NEGATIVE)
== END 2018-11-07 13:45 | disposition home or self-care (01) ==
LOC: JER 08:38
PROC: 3E033VG Introduction of Insulin into Peripheral Vein, Percutaneous Approach (ICD-10-PCS; principal; 2018-11-07)
PROC: 3E013VG Introduction of Insulin into Subcutaneous Tissue, Percutaneous Approach (ICD-10-PCS; 2018-11-07)
DX: E11.65 Type 2 diabetes mellitus with hyperglycemia (principal); Z79.4 Long term (current) use of insulin
CPT/HCPCS: 36415; 80053; 82009; 82803; 82962; 85025; 96372; 96374; 99282-25

== ENCOUNTER 2019-03-06 09:49 | Emergency (ER) | payer OTHER ==
[2019-03-06 09:58] VITALS: BMI 29.0
[2019-03-06 11:26] LABS: BASO % 0.4 % (0-2.0); EOS % 0.4 % (0-4.5); HEMATOCRIT 43.8 % (32.4-45.2); HEMOGLOBIN 14.6 GM/dL (10.7-15.3); LYMPH % 35.6 % (8-40); MCHC 33.3 g/dl (32.0-36.0); MEAN CELL VOLUME 93.2 fl (80-96); MEAN PLT VOLUME 8.8 fl (7.5-11.1); MONO % 7.3 % (3.8-10.2); NEUT % 56.3 % (42.8-82.8); PLATELET COUNT 241 K/MM3 (134-434); RDW 12.8 % (11.6-15.6); WHITE BLOOD COUNT 9.1 K/mm3 (4.0-10.0)
[2019-03-06] MEDS ORDERED: INSULIN (LEVEMIR) 100 UNITS/ML UNITS SQ ONE (11:39)
[2019-03-06 11:40] LABS: CALCIUM 8.8 mg/dL (8.5-10.1); POTASSIUM 4.3 mmol/L (3.5-5.1)
--- NOTE | 2019-03-06 12:13 | PDOC ---
Documentation entered by Sy Hernandez SCRIBE, acting as scribe for Nakul Alex MD. Nakul Alex MD: This documentation has been prepared by the Mary araiza Xhesika, SCRIBE, under my direction and personally reviewed by me in its entirety. I confirm that the documentation accurately reflects all work, treatment, procedures, and medical decision making performed by me. History of Present Illness - General Chief Complaint: Blood Sugar Problem Stated Complaint: HYPERGLYCEMIA Time Seen by Provider: 03/06/19 10:04 History Source: Patient Exam Limitations: No Limitations - History of Present Illness Initial Comments: 03/06/19 10:16 The patient is a 53 year old female with a PMH of HTN, DM ( on insulin, poorly compliant with treatment), schizophrenia, and Lung ca who presents to the ED for elevated glucose of 345 at home. Patient denies any complaints. The patient denies shortness of breath, headache and dizziness. Denies fever, chills, cough, nausea, vomiting, diarrhea and constipation. Denies dysuria, frequency, urgency and hematuria. Allergies: NKDA Past History - Past Medical History Allergies/Adverse Reactions: Allergies Allergy/AdvReac Type Severity Reaction Status Date / Time No Known Drug Allergies Allergy Verified 03/06/19 09:53 Home Medications: Ambulatory Orders Atorvastatin Ca [Lipitor] 10 mg PO HS 09/25/18 Cetirizine HCl 10 mg PO DAILY 09/25/18 Divalproex *ER* [Depakote *ER* -] 500 mg PO DAILY 09/25/18 Glipizide 5 mg PO DAILY 09/25/18 Haloperidol 20 mg PO DAILY 09/25/18 Insulin Glargine,Hum.rec.anlog [Basaglar Kwikpen U-100] 22 unit SQ HS 09/25/18 Metformin HCl [Glucophage] 500 mg PO BID 09/25/18 Metformin HCl [Glucophage] 500 mg PO BID #14 tablet 03/06/19 COPD: No Diabetes: Yes HTN: Yes Psychiatric Problems: Yes Lung CA: Yes - Immunization History Immunization Up to Date: No - Psycho Social/Smoking Cessation Hx Smoking History: Never smoked Have you smoked in the past 12 months: Yes Number of Cigarettes Smoked Daily: 10 Hx Alcohol Use: No Drug/Substance Use Hx: No Review of Systems - Review of Systems Able to Perform ROS?: Yes Comments:: 03/06/19 10:16 A complete review of 10 out of 10 review of systems is taken and is negative apart from what is previously mentioned below and in the HPI. *Physical Exam - Vital Signs Last Vital Signs Temp Pulse Resp BP Pulse Ox 98.5 F 100 H 16 131/82 95 03/06/19 09:53 03/06/19 09:53 03/06/19 09:53 03/06/19 09:53 03/06/19 09:53 - Physical Exam Comments: 03/06/19 10:16 Vitals: Triage Vital signs reviewed General Appearance: no acute distress, well nourished well developed, Neck: Supple;No Nuchal rigidity Chest Wall: Nontender Cardiac: Regular rate and rhythm, no murmurs, no rubs, no gallops, Lungs: Clear to auscultation bilateral, good air movement bilaterally, Extremities: Full range of motion to all extremities, no cyanosis, clubbing, or edema Neuro: AOX3; Cranial Nerves 2-12 grossly c intact, Strength intact to all extremities, Sensation intact to all extremities, gait normal Psych: normal mood, normal affect. No active visual hallucinations. No active SI or HI ideation. ED Treatment Course - LABORATORY CBC & Chemistry Diagram: 03/06/19 10:22 03/06/19 10:22 - ADDITIONAL ORDERS Additional order review: Laboratory Results 03/06/19 10:01 POC Glucometer 385 03/06/19 10:01 POC Glucometer 385 - Medications Given in the ED: ED Medications Discontinued Medications Generic Name Dose Route Start Last Admin Trade Name Freq PRN Reason Stop Dose Admin Insulin Detemir 10 units 03/06/19 11:39 03/06/19 11:40 Levemir Vial SQ 03/06/19 11:40 10 unit ONCE ONE Administration Medical Decision Making - Medical Decision Making 03/06/19 12:11\ Noncompliant diabetic unclear if insulin-dependent or non insulin dependent. Patient does not know home medications Patient not in DKA no anion gap fingersticks trended in the 400s will place patient on metformin 500 twice daily have patient follow-up in clinic on Saturday of this coming week Findings, the need for follow-up and strict return instructions discussed with patient. 03/06/19 12:54 Discharge - Discharge Information Problems reviewed: Yes Clinical Impression/Diagnosis: Hyperglycemia Condition: Fair Disposition: HOME - Admission No - Additional Discharge Information Prescriptions: Metformin HCl [Glucophage] 500 mg PO BID #14 tablet - Follow up/Referral Referrals: Sariah Polk MD [Primary Care Provider] - [facility] [place] [facility] [place] [Provider Group] - Patient Discharge Instructions Patient Printed Discharge Instructions: DI for Hyperglycemia -- Adult Additional Instructions: Take metformin as prescribed. Drink plenty fluids. Follow-up in the [facility] on Saturday or Saturday of this coming week. Return to ED for any concerns. - Post Discharge Activity
[2019-03-06 12:36] VITALS: BP 134/74; PULSE 94; TEMP 98.3
== END 2019-03-06 12:36 | disposition home or self-care (01) ==
LOC: JER 09:49
PROC: 3E013VG Introduction of Insulin into Subcutaneous Tissue, Percutaneous Approach (ICD-10-PCS; principal; 2019-03-06)
DX: E11.65 Type 2 diabetes mellitus with hyperglycemia (principal); Z91.19 Patient's noncompliance with other medical treatment and regimen; I10 Essential (primary) hypertension; F99 Mental disorder, not otherwise specified; Z85.118 Personal history of other malignant neoplasm of bronchus and lung
CPT/HCPCS: 36415; 80048; 82010; 82962; 85025; 96372; 99283-25

== ENCOUNTER 2019-04-08 17:17 | Emergency (ER) | payer OTHER ==
--- NOTE | 2019-04-08 17:41 | PDOC ---
Rapid Medical Evaluation Time Seen by Provider: 04/08/19 17:29 Medical Evaluation: Allergies Allergy/AdvReac Type Severity Reaction Status Date / Time No Known Drug Allergies Allergy Verified 03/06/19 09:53 04/08/19 17:38 I have performed a brief in-person evaluation of this patient. The patient presents with a chief complaint of:vaginal burning and itching of unclear duration of sxs. Unsure from hx if pt was seen for this before as poor hx and appears disorganized in thinking. Pt schizophrenia, NIDM w/ multiple ER visits for hyperglycemia Pertinent physical exam findings:stable I have ordered the following:nothing The patient will proceed to the ED for further evaluation. Discharge Disposition - Diagnosis Vaginal itching - Discharge Dispostion Last Admission D/C Date: 09/26/18 - Referrals Referrals: Sariah Polk MD [Primary Care Provider] - - Patient Instructions - Post Discharge Activity
[2019-04-08 17:44] VITALS: BP 140/98; PULSE 124; TEMP 98.7; BMI 29.0
[2019-04-08] MEDS ORDERED: FLUCONAZOLE 50 MG TABLET PO ONE (21:43)
[2019-04-08] MEDS ORDERED: INSULIN REGULAR HUMAN 100 UNITS/ML *VIAL IVPUSH ONE (21:47)
[2019-04-08] MEDS ORDERED: SODIUM CHLORIDE 1,000 ML IV STA (21:47)
--- NOTE | 2019-04-08 22:34 | PDOC ---
*Physical Exam - Vital Signs Last Vital Signs Temp Pulse Resp BP Pulse Ox 98.7 F 124 H 18 140/98 100 04/08/19 17:39 04/08/19 17:39 04/08/19 17:39 04/08/19 17:39 04/08/19 17:39 ED Treatment Course - ADDITIONAL ORDERS Additional order review: Laboratory Results 04/08/19 21:44 POC Glucometer 417 04/08/19 21:44 POC Glucometer 417 Medical Decision Making - Medical Decision Making 04/08/19 22:31 Patient seen by the advanced practice provider under my direct supervision. Ancillary testing reviewed as necessary. I agree with plan as outlined by the advanced practice provider. Patient wandering around the emergency department, per staff she has left the department multiple times and returned Patient asked to stay in bed for IV fluids and further management, she has refused and has been up at the nurses station demanding food though her blood sugar is elevated, multiple attempts were made at verbal redirection both by myself, nursing and security staff. Patient continued to verbally escalate, when refused food she asked to leave the emergency department, due to her behavior she was escorted out by security.Patient awake alert ambulating normally and oriented x4 yelling profanities at the staff on her way out. Discharge - Discharge Information Problems reviewed: Yes Clinical Impression/Diagnosis: Vaginal itching - Follow up/Referral Referrals: Sariah Polk MD [Primary Care Provider] - - Patient Discharge Instructions - Post Discharge Activity
--- NOTE | 2019-04-08 22:35 | PDOC ---
History of Present Illness - General Chief Complaint: Vaginal Sxs Stated Complaint: DIABETIC Time Seen by Provider: 04/08/19 17:29 History Source: Patient Exam Limitations: No Limitations Past History - Past Medical History Allergies/Adverse Reactions: Allergies Allergy/AdvReac Type Severity Reaction Status Date / Time No Known Drug Allergies Allergy Verified 04/08/19 17:39 Home Medications: Ambulatory Orders Atorvastatin Ca [Lipitor] 10 mg PO HS 09/25/18 Cetirizine HCl 10 mg PO DAILY 09/25/18 Divalproex *ER* [Depakote *ER* -] 500 mg PO DAILY 09/25/18 Glipizide 5 mg PO DAILY 09/25/18 Haloperidol 20 mg PO DAILY 09/25/18 Insulin Glargine,Hum.rec.anlog [Basaglar Kwikpen U-100] 22 unit SQ HS 09/25/18 Metformin HCl [Glucophage] 500 mg PO BID 09/25/18 Metformin HCl [Glucophage] 500 mg PO BID #14 tablet 03/06/19 COPD: No Diabetes: Yes HTN: Yes Psychiatric Problems: Yes Lung CA: Yes - Immunization History Immunization Up to Date: No - Psycho Social/Smoking Cessation Hx Smoking History: Current every day smoker Have you smoked in the past 12 months: Yes Number of Cigarettes Smoked Daily: 20 Information on smoking cessation initiated: No Hx Alcohol Use: No Drug/Substance Use Hx: No *Physical Exam - Vital Signs Last Vital Signs Temp Pulse Resp BP Pulse Ox 98.7 F 124 H 18 140/98 100 04/08/19 17:39 04/08/19 17:39 04/08/19 17:39 04/08/19 17:39 04/08/19 17:39 - Physical Exam General Appearance: No: Apparent Distress Respiratory/Chest: positive: Lungs Clear, Normal Breath Sounds. negative: Respiratory Distress Cardiovascular: positive: Regular Rhythm, Regular Rate, S1, S2. negative: Murmur Female Pelvic Exam: positive: other (external vagina white with satellite lesions). negative: CMT, discharge Gastrointestinal/Abdominal: positive: Normal Bowel Sounds, Soft. negative: Tender, Distended, Guarding, Rebound Neurologic: positive: Alert ED Treatment Course - ADDITIONAL ORDERS Additional order review: Laboratory Results 04/08/19 21:44 POC Glucometer 417 04/08/19 21:44 POC Glucometer 417 Medical Decision Making - Medical Decision Making 53 y/o F with hx of HTN, DM, schizophrenia presents with vaginal burning x 2 days. States it is burning because she can't stop eating candy. States she knows she is diabetic but still drinks soda. Denies fever, sob, cp, abd pain, n/ v, vag d/c, urinary sxs. Of note, patient has been in ED in prior for hyperglycemia. Patient states she only takes insulin (twice a day), but uncertain what type. States she did take her insulin today. Yeast infection FS found to be >400 Plan was to get labs and to give patient IVF, insulin, fluconazole However, patient was very uncooperative, walking around ED, causing disruption Patient requested to be removed from ED given lack of cooperation and concern for staff safety by Dr. Billings 04/08/19 22:26 Discharge - Discharge Information Problems reviewed: Yes Clinical Impression/Diagnosis: Vaginal itching, Hyperglycemia Disposition: AGAINST MEDICAL ADVICE - Follow up/Referral Referrals: Sariah Polk MD [Primary Care Provider] - - Patient Discharge Instructions - Post Discharge Activity
== END 2019-04-08 22:37 | disposition left against medical advice (07) ==
LOC: JER 17:17
DX: E11.65 Type 2 diabetes mellitus with hyperglycemia (principal); Z79.4 Long term (current) use of insulin; B37.3 Candidiasis of vulva and vagina; I10 Essential (primary) hypertension; F20.9 Schizophrenia, unspecified
CPT/HCPCS: 82962; 99283-25

== ENCOUNTER 2019-11-11 09:19 | Emergency (ER) | payer OTHER ==
[2019-11-11 09:27] VITALS: BMI 26.6
--- NOTE | 2019-11-11 09:28 | PDOC ---
Rapid Medical Evaluation Chief Complaint: Blood Sugar Problem Medical Evaluation: Allergies Allergy/AdvReac Type Severity Reaction Status Date / Time No Known Drug Allergies Allergy Verified 04/08/19 17:39 11/11/19 09:24 54 yo F h/o DM, HTN, schizophrenia non compliant with medications. c/o "my sugar is high". denies cp, sob, f/c, cough, abd pain. VSS speaking erratically pacing in the waiting room A/P: schizophrenic c/o hyperglycemia labs main ED
[2019-11-11] MEDS ORDERED: DEXTROSE 50%-WATER - 25 GM/50 ML VIAL IVPUSH ONE (09:35)
--- NOTE | 2019-11-11 09:44 | PDOC ---
History of Present Illness - General Chief Complaint: Blood Sugar Problem Stated Complaint: HYPERGLYCEMIA Time Seen by Provider: 11/11/19 09:36 - History of Present Illness Initial Comments: Yuliet Jones is a 54 y/o female with PMH significant for DM and schizophrenia, presenting today with hyperglycemia. Reports that she was at her doctor's office when she was told her blood glucose was elevated. States that she took her DM medications this morning but is unsure about what medications she is on. Denies chest pain/shortness of breath. Denies headache/lightheadedness/dizziness. Denies nausea/vomiting. Denies vision change s. Denies abdominal pain. Denies dysuria/diarrhea. Denies leg swelling. Denies back pain. Past History - Medical History Allergies/Adverse Reactions: Allergies Allergy/AdvReac Type Severity Reaction Status Date / Time No Known Drug Allergies Allergy Verified 11/11/19 09:26 Home Medications: Ambulatory Orders Atorvastatin Ca [Lipitor] 10 mg PO HS 09/25/18 Cetirizine HCl 10 mg PO DAILY 09/25/18 Divalproex *ER* [Depakote *ER* -] 500 mg PO DAILY 09/25/18 Glipizide 5 mg PO DAILY 09/25/18 Haloperidol 20 mg PO DAILY 09/25/18 Insulin Glargine,Hum.rec.anlog [Basaglar Kwikpen U-100] 22 unit SQ HS 09/25/18 Metformin HCl [Glucophage] 500 mg PO BID 09/25/18 COPD: No Diabetes: Yes HTN: Yes Psychiatric Problems: Yes Lung CA: Yes - Immunization History Immunization Up to Date: No - Psycho-Social/Smoking History Smoking History: Never smoked Have you smoked in the past 12 months: Yes Number of Cigarettes Smoked Daily: 20 Information on smoking cessation initiated: No - Substance Abuse Hx (Audit-C & DAST Scrn) How often the patient has a drink containing alcohol: Never Score: In Men: 4 or > Positive; In Women: 3 or > Positive: 0 Screen Result (Pos requires Nsg. Audit-10AR): Negative In the last yr the pt used illegal drug/Rx for NonMed reason: No Score: Yes response is considered Positive: 0 Screen Result (Positive result requires Nsg. DAST-10): Negative Review of Systems - Review of Systems Comments:: GENERAL/CONSTITUTIONAL: No fever or chills. No weakness._ HEAD, EYES, EARS, NOSE AND THROAT: No change in vision. No change in hearing. No sore throat._ CARDIOVASCULAR: No chest pain or shortness of breath_ RESPIRATORY: Denies cough, hemoptysis_ GASTROINTESTINAL: No nausea, vomiting, diarrhea or constipation._ GENITOURINARY: No dysuria, frequency, or change in urination._ MUSCULOSKELETAL: No joint or muscle swelling or pain. No neck or back pain._ SKIN: No rash_ NEUROLOGIC: No headache, vertigo, loss of consciousness, or change in strength/sensation._ ENDOCRINE: No increased thirst. No abnormal weight change_ HEMATOLOGIC/LYMPHATIC: No anemia, easy bleeding, or history of blood clots._ ALLERGIC/IMMUNOLOGIC: No hives or skin allergy._ *Physical Exam - Vital Signs Last Vital Signs Temp Pulse Resp BP Pulse Ox 98.5 F 79 19 107/75 99 11/11/19 09:22 11/11/19 09:22 11/11/19 09:22 11/11/19 09:22 11/11/19 09:22 - Physical Exam GENERAL: Awake, alert, and oriented to person/place/time, in no acute distress_ HEAD: No signs of trauma, normocephalic, atraumatic _ EYES: PERRLA, EOMI, sclera anicteric, conjunctiva clear_ ENT: Hearing grossly normal, nares patent, oropharynx clear without exudates. No uvular deviation. Moist mucosa_ NECK: Normal ROM, supple, no lymphadenopathy, JVD, or masses_ LUNGS: No distress, speaks in full sentences, clear to auscultation bilaterally _ HEART: Regular rate and rhythm, normal S1 and S2, no murmurs appreciated, peripheral pulses normal and equal bilaterally._ ABDOMEN: Soft, nontender, normoactive bowel sounds. No guarding, no rebound. No masses_ EXTREMITIES: Normal inspection, Normal range of motion, no edema. No clubbing or cyanosis_ NEUROLOGICAL: Cranial nerves II through XII grossly intact. Normal speech, normal gait, no focal sensorimotor deficits _ SKIN: Warm, Dry, normal turgor, no rashes or lesions noted_ ED Treatment Course - LABORATORY CBC & Chemistry Diagram: 11/11/19 09:50 11/11/19 11:05 Medical Decision Making - Medical Decision Making 11/11/19 09:51 54F hx of DM and schizophrenia with prior admission for hyperglycemia presenting today with high blood glucose. -POC glucose -cbc, cmp -beta hydroxybutyrate -vbg 11/11/19 11:29 EKG shows 91 bpm, NSR, no axis deviation, AL 138, QTc 437, no ST elevation/depression. 11/11/19 12:30 Labs reviewed. Laboratory Last Values WBC 11.6 K/mm3 (4.0-10.0) H 11/11/19 09:50 RBC 4.55 M/mm3 (3.60-5.2) 11/11/19 09:50 Hgb 14.2 GM/dL (10.7-15.3) 11/11/19 09:50 Hct 41.4 % (32.4-45.2) 11/11/19 09:50 MCV 90.9 fl (80-96) 11/11/19 09:50 MCH 31.3 pg (25.7-33.7) 11/11/19 09:50 MCHC 34.4 g/dl (32.0-36.0) 11/11/19 09:50 RDW 12.7 % (11.6-15.6) 11/11/19 09:50 Plt Count 284 K/MM3 (134-434) 11/11/19 09:50 MPV 8.5 fl (7.5-11.1) 11/11/19 09:50 Absolute Neuts (auto) 7.1 K/mm3 (1.5-8.0) 11/11/19 09:50 Neutrophils % 61.1 % (42.8-82.8) 11/11/19 09:50 Lymphocytes % 30.6 % (8-40) 11/11/19 09:50 Monocytes % 6.2 % (3.8-10.2) 11/11/19 09:50 Eosinophils % 0.4 % (0-4.5) 11/11/19 09:50 Basophils % 1.7 % (0-2.0) D 11/11/19 09:50 Nucleated RBC % 0 % (0-0) 11/11/19 09:50 VBG pH 7.361 (7.310-7.410) 11/11/19 09:50 POC VBG pCO2 40.3 mmHg (38-52) 11/11/19 09:50 POC VBG pO2 39.9 mmHg (28-48) 11/11/19 09:50 VBG HCO3 22.3 mmol/L (23-29) L 11/11/19 09:50 VBG O2 Sat ([place]) 73.0 % (70-80) 11/11/19 09:50 VBG Base Excess -2.9 mmol/L (-2-2) L 11/11/19 09:50 Sodium 137 mmol/L (136-145) 11/11/19 11:05 Potassium 3.9 mmol/L (3.5-5.1) 11/11/19 11:05 Chloride 104 mmol/L (98-107) 11/11/19 11:05 Carbon Dioxide 26 mmol/L (21-32) 11/11/19 11:05 Anion Gap 8 MMOL/L (8-16) 11/11/19 11:05 BUN 13.2 mg/dL (7-18) 11/11/19 11:05 Creatinine 1.0 mg/dL (0.55-1.3) 11/11/19 11:05 Est GFR (CKD-EPI)AfAm 74.49 11/11/19 11:05 Est GFR (CKD-EPI)NonAf 64.27 11/11/19 11:05 POC Glucometer 262 UNITS (80-120) 11/11/19 09:54 Random Glucose 311 mg/dL (74-106) H 11/11/19 11:05 Calcium 9.2 mg/dL (8.5-10.1) 11/11/19 11:05 Total Bilirubin 1.0 mg/dL (0.2-1) 11/11/19 09:38 AST 64 U/L (15-37) H 11/11/19 09:38 ALT 33 U/L (13-61) 11/11/19 09:38 Alkaline Phosphatase 115 U/L (45-117) 11/11/19 09:38 Total Protein 7.9 g/dl (6.4-8.2) 11/11/19 09:38 Albumin 3.4 g/dl (3.4-5.0) 11/11/19 09:38 Beta-Hydroxybutyrate 0.8 mg/dL (0.2-2.8) 11/11/19 11:05 Pt reassessed. Plan to d/c home with PCP f/u. All questions answered. Return pr ecautions given. Pt verbalized understanding and agreement with plan. Discharge - Discharge Information Problems reviewed: Yes Clinical Impression/Diagnosis: Hyperglycemia due to type 2 diabetes mellitus, Insulin dependent diabetes mellitus, Noncompliance with medication regimen Condition: Stable Disposition: HOME - Admission No - Follow up/Referral Referrals: Haseeb Mcgrath II, DO [Primary Care Provider] - - Patient Discharge Instructions Patient Printed Discharge Instructions: DI for Hyperglycemia -- Adult Additional Instructions: Please make an appointment with your primary care doctor (referral provided here). Please continue taking your medications as prescribed. If you experience any new, worsening, or concerning symptoms, including chest pain, shortness of breath, headache, dizziness, lethargy, nausea/vomiting, or any other concerns, please return to the emergency department. - Post Discharge Activity
[2019-11-11 10:08] LABS: BASO % 1.7 % (0-2.0); EOS % 0.4 % (0-4.5); HEMATOCRIT 41.4 % (32.4-45.2); HEMOGLOBIN 14.2 GM/dL (10.7-15.3); LYMPH % 30.6 % (8-40); MCH 31.3 pg (25.7-33.7); MCHC 34.4 g/dl (32.0-36.0); MEAN CELL VOLUME 90.9 fl (80-96); MEAN PLT VOLUME 8.5 fl (7.5-11.1); MONO % 6.2 % (3.8-10.2); NEUT % 61.1 % (42.8-82.8); PLATELET COUNT 284 K/MM3 (134-434); RBC 4.55 M/mm3 (3.60-5.2); RDW 12.7 % (11.6-15.6); WHITE BLOOD COUNT 11.6 K/mm3 (4.0-10.0)
[2019-11-11 10:20] LABS: VENOUS BASE EXCESS -2.9 mmol/L (-2-2); VENOUS PCO2 40.3 mmHg (38-52); VENOUS PH 7.361 (7.310-7.410)
--- NOTE | 2019-11-11 10:24 | PDOC ---
Documentation entered by Veronica Rock SCRIBE, acting as scribe for Nik Barrios MD. Nik Barrios MD: This documentation has been prepared by the mireyaibePranav Ana, SCRIBE, under my direction and personally reviewed by me in its entirety. I confirm that the documentation accurately reflects all work, treatment, procedures, and medical decision making performed by me. Attending Attestation - Resident Resident Name: Augie Shah - ED Attending Attestation I have performed the following: I have examined & evaluated the patient, The case was reviewed & discussed with the resident, I agree w/resident's findings & plan, Exceptions are as noted - HPI HPI: 11/11/19 09:38 Patient is a 54 year old female with a significant past medical history of IDDM, schizophrenia, hypertension, and Lung ca, who presents to the ED with hyperglycemia. Patient stated she knows her blood sugar is high because she went to her doctor who checked her blood sugar. Patient states she took her prescribed diabetes medication. Patient denies: fevers, chills, headache, any vision changes, nausea, vomiting, SOB, chest pain, abdominal pain, back pain, dysuria, diarrhea, extremity edema, or any other related symptoms. Allergies: NKDA - Physicial Exam PE: 11/11/19 10:25 "GENERAL: Awake, alert, and fully oriented, in no acute distress. HEAD: No signs of trauma EYES: PERRLA, EOMI, sclera anicteric, conjunctiva clear ENT: Auricles normal inspection, hearing grossly normal, nares patent, oropharynx clear without exudates. Moist mucosa NECK: Nontender, no stepoffs, Normal ROM, supple, no lymphadenopathy, JVD, or masses LUNGS: Breath sounds equal, clear to auscultation bilaterally. No wheezes, and no crackles HEART: Regular rate and rhythm, normal S1 and S2, no murmurs, rubs or gallops ABDOMEN: Soft, nontender, normoactive bowel sounds. No guarding, no rebound. No masses EXTREMITIES: Normal range of motion, no edema. No clubbing or cyanosis. No cords, erythema, or tenderness NEUROLOGICAL: Cranial nerves II through XII intact. 5/5 strength and sensation in all extremities, Normal speech, normal gait, normal cerebellar function SKIN: Warm, Dry, normal turgor, no rashes or lesions noted. - Medical Decision Making 11/11/19 10:25 54 F with hyperglycemia. - Labs, ketones, VBG - IVF, insulin PRN 11/11/19 12:45 Labs wnl Pt is well appearing, with normal vitals. Clinically stable for DC at this time. I discussed the physical exam findings, ancillary test results and final diagnoses with the patient. I answered all of the patient's questions. The patient was satisfied with the care received and felt comfortable with the discharge plan and treatment plan. The patient agrees to follow up with the primary care physician within 24-72 hours. Please note this patient was evaluated during the COVID-19 crisis with the presidential [place] Act Declaration and the [place] govern[place] executive order number 202. He/she was evaluated and clinical decisions were made relative to healthcare system resources as well as clinical picture during a pandemic crisis situation. Discharge - Discharge Information Problems reviewed: Yes Clinical Impression/Diagnosis: Hyperglycemia due to type 2 diabetes mellitus, Insulin dependent diabetes mellitus, Noncompliance with medication regimen - Follow up/Referral Referrals: Haseeb Mcgrath II, DO [Primary Care Provider] - - Patient Discharge Instructions Patient Printed Discharge Instructions: DI for Hyperglycemia -- Adult Additional Instructions: Please make an appointment with your primary care doctor (referral provided he re). Please continue taking your medications as prescribed. If you experience any new, worsening, or concerning symptoms, including chest pain, shortness of breath, headache, dizziness, lethargy, nausea/vomiting, or any other concerns, please return to the emergency department. - Post Discharge Activity
[2019-11-11 10:38] LABS: ALBUMIN 3.4 g/dl (3.4-5.0); BLOOD UREA NITROGEN 13.1 mg/dL (7-18); CREATININE 1.1 mg/dL (0.55-1.3); TOT PROT 7.9 g/dl (6.4-8.2)
[2019-11-11 10:45] LABS: POTASSIUM 7.3 mmol/L (3.5-5.1)
[2019-11-11 11:44] LABS: BLOOD UREA NITROGEN 13.2 mg/dL (7-18); CALCIUM 9.2 mg/dL (8.5-10.1); POTASSIUM 3.9 mmol/L (3.5-5.1)
[2019-11-11 12:23] VITALS: BP 107/77; PULSE 86; TEMP 98.2
--- NOTE | 2019-11-12 12:12 | EKG ---
Test Reason : Blood Pressure : / mmHG Vent. Rate : 091 BPM Atrial Rate : 091 BPM P-R Int : 138 ms QRS Dur : 072 ms QT Int : 356 ms P-R-T Axes : 059 004 039 degrees QTc Int : 437 ms NORMAL SINUS RHYTHM NORMAL ECG WHEN COMPARED WITH ECG OF 26-SEP-2018 09:04, NO SIGNIFICANT CHANGE WAS FOUND Confirmed by DAYAN BAUTISTA MD ([id number]) on 11/12/2019 12:12:01 PM Referred By: Confirmed By:DAYAN BAUTISTA MD
== END 2019-11-11 13:01 | disposition home or self-care (01) ==
LOC: JER 09:19
PROC: 3E013VG Introduction of Insulin into Subcutaneous Tissue, Percutaneous Approach (ICD-10-PCS; principal; 2019-11-11)
DX: E11.65 Type 2 diabetes mellitus with hyperglycemia (principal); Z79.4 Long term (current) use of insulin; Z91.19 Patient's noncompliance with other medical treatment and regimen
CPT/HCPCS: 36415; 80048; 80053; 82010; 82803; 82962; 85025; 93005; 93010; 99284-25

== ENCOUNTER 2020-11-01 04:28 | Emergency (ER) | payer OTHER ==
[2020-11-01 05:22] VITALS: BP 112/71; PULSE 85; TEMP 98.3; BMI 29.0
== END 2020-11-01 06:11 | disposition left against medical advice (07) ==
LOC: JER 04:28
DX: L02.219 Cutaneous abscess of trunk, unspecified (principal)
CPT/HCPCS: 99281-25